=== PATIENT | male | born 1985 | race African-American/Black ===

== ENCOUNTER 2016-09-01 19:54 | Emergency (ER) | payer SELFPAY ==
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
== END 2016-09-01 20:05 | disposition home or self-care (01) ==
DX: T75.4XXA Electrocution, initial encounter (principal)

== ENCOUNTER 2017-12-13 17:43 | Emergency (ER) | payer MEDICAID, OTHER ==
[~2017-12-13 17:43] MED LIST: IOPAMIDOL (ISOVUE-300) 100 ML BTL ONE
[2017-12-13] MEDS ORDERED: RIVAROXABAN 15 MG TAB PO ONE (18:26)
--- NOTE | 2017-12-13 18:34 | EDPHY ---
H & P Stated Complaint: BILAT DVT Time Seen by Provider: 12/13/17 17:52 HPI/ROS: Chief complaint: Swollen legs HPI: This is a 42 year old male with a history of PTSD who presents after undergoing LE ultrasound that revealed bilateral DVT. He is undergoing evaluation of a left neck mass and had a neck CT done on 12/06/17 that showed a necrotic lypmh node/mass. Final diagnosis not available, but possible cancer. He saw his PCP, Joseph King, and was referred for LE US because of leg swelling. US shows bilateral small volume DVT. He was escorted to ED for treatment. Patient is reluctant/unwilling to provide much information to me. The above comes from radiology records. He is anxious to leave the ED, did not want to stay for evaluation or treatment. I do not know the chronicity of his neck mass , leg swelling. He denies shortness of breath. He expresses dismay over how quickly the work up is proceeding and wants to slow it down. Clearly, he has little tolerance for the ED setting. ROS: As above. Patient not compliant with prolong questioning. PMH: PTSD SH: Patient not wanting to share details of his life. PE: Alert. Sitting in chair in exam room. In street clothes. BP 120/91 at triage, 117/82 at DC. HR 113 at triage, 90 at DC. Afebrile. 98% RA. Neck: Visible left neck mass. Lungs: CTA Cardiac: RRR, no murmur, rub, or gallop. Abdomen: Soft and nontender. Extremities: 3+ pitting edema bilateral LEs to knees. Neuro: Alert. Mary Jo spontaneously. Psych: Slightly anxious. - Personal History Current Tetanus/Diphtheria Vaccine: Unsure - Medical/Surgical History Hx Asthma: No Hx Chronic Respiratory Disease: No Hx Diabetes: No Hx Cardiac Disease: No Hx Renal Disease: No Hx Cirrhosis: No Hx Alcoholism: No Hx HIV/AIDS: No Hx Splenectomy or Spleen Trauma: No Other PMH: UNKNOWN. PT REFUSED TO TALK - Social History Smoking Status: Current every day smoker Constitutional: Initial Vital Signs Temperature (C) 36.7 C 12/13/17 17:46 Heart Rate 113 H 12/13/17 17:46 Respiratory Rate 17 12/13/17 17:46 Blood Pressure 120/91 H 12/13/17 17:46 O2 Sat (%) 98 12/13/17 17:46 O2 Delivery Mode Room Air Allergies/Adverse Reactions: haloperidol [From Haldol] Allergy (Verified 12/13/17 17:45) Home Medications: Medication Instructions Recorded Depakote 12/13/17 Rivaroxaban [Xarelto 15mg (*)] 15 mg PO BID #42 tab 12/13/17 Seroquel 12/13/17 traMADol 12/13/17 Medical Decision Making ED Course/Re-evaluation: 42 year old male undergoing what seems to be an evaluation for possible cancer ( neck mass). Diagnosed today with small volume bilateral LE DVT. He is extremely reluctant to participate in evaluation in the ED. It was difficult to convince him to stay. I would have liked to have spent more time with him and learned more about his OP care, but he was not willing to have me do so. I have chosen to treat his DVTs with Eliquis, with the thought that he might not have consistent interactions with his medical team. They are small volume. He is started on Eliquis, which his Medicaid should cover. Differential Diagnosis: I considered a ddx that includes but is not limited to prolonged inactivity, DVT , PE, thrombophlebitis,Bakers cyst, renal failure, CHF, chronic venous insufficiency, inferior vena cava syndrome, and lymphedema. - Data Points Medications Given: Discontinued Medications Rivaroxaban (Xarelto) 15 mg PO EDNOW ONE Stop: 12/13/17 18:27 Last Admin: 12/13/17 18:32 Dose: 15 mg Departure - Departure Disposition: Home, Routine, Self-Care Clinical Impression: DVT (deep venous thrombosis) Qualifiers: DVT location: lower extremity Affected thrombotic vein of extremity: femoral Chronicity: acute Laterality: bilateral Qualified Code(s): I82.413 - Acute embolism and thrombosis of femoral vein, bilateral Condition: Good Instructions: Deep Vein Thrombosis (ED) Additional Instructions: I am prescribing Xarelto, a blood thinner, for treatment of the blood clots in your legs. Your insurance should cover the prescription. You take 15 mg twice daily for 21 days. After that you will take it once daily at a different dosage. You need to contact your doctor to get another prescription. You should see her next week. If you are worse in any way--more leg pain, chest pain, or difficulty breathing- -you should be reexamined immediately. Please keep all of the appointments that your doctor is arranging for you so that we can figure out what is going on. Referrals: NONE *PRIMARY CARE P,. [Primary Care Provider] - As per Instructions Prescriptions: Rivaroxaban [Xarelto 15mg (*)] 15 mg PO BID #42 tab
[2017-12-13 18:58] VITALS: BP 117/82
== END 2017-12-13 18:57 | disposition home or self-care (01) ==
DX: I82.413 Acute embolism and thrombosis of femoral vein, bilateral (principal); F17.200 Nicotine dependence, unspecified, uncomplicated; Z79.01 Long term (current) use of anticoagulants
CPT/HCPCS: Q9967

== ENCOUNTER → 2017-12-13 | Outpatient (CLI) | payer MEDICAID | LOC: FIMAGING 15:58 | DX: J90 Pleural effusion, not elsewhere classified (principal); I82.413 Acute embolism and thrombosis of femoral vein, bilateral ==